=== PATIENT | female | born 1980 | race African-American/Black ===

== ENCOUNTER 2016-06-09 22:58 | Emergency (ER) | payer OTHER ==
[~2016-06-09] VITALS: Ht 165.1 cm; Wt 79.8 kg
[2016-06-09 23:00] VITALS: BP 128/90
[2016-06-09] MEDS ORDERED: CYCL10TA2 PO (23:17)
--- NOTE | 2016-06-09 23:17 | PHYS DOC ---
Past Medical History Past Medical History: No Pertinent History Past Surgical History: Other Additional Past Surgical Histo: SI joint Alcohol Use: None Drug Use: None Adult General Chief Complaint Chief Complaint: Neck Pain HPI HPI 35-year-old female presents with right-sided neck pain. She states she feels like she is pinched a nerve in her neck. It does radiate to her right shoulder. Seems worse in the morning. She is denies any loss of strength to the area. She did take one of her sisters Flexeril which did help.] Review of Systems Review of Systems Constitutional: Denies fever or chills [] Eyes: Denies change in visual acuity, redness, or eye pain [] HENT: Denies nasal congestion or sore throat [] Respiratory: Denies cough or shortness of breath [] Cardiovascular: No additional information not addressed in HPI [] GI: Denies abdominal pain, nausea, vomiting, bloody stools or diarrhea [] : Denies dysuria or hematuria [] Musculoskeletal: Neck pain [] Integument: Denies rash or skin lesions [] Neurologic: Denies headache, focal weakness or sensory changes [] Endocrine: Denies polyuria or polydipsia [] Allergies Allergies Allergies Coded Allergies Type Severity Reaction Last Updated Verified No Known Drug Allergies 06/26/14 No Physical Exam Physical Exam Constitutional: Well developed, well nourished, no acute distress, non-toxic appearance. [] HENT: Normocephalic, atraumatic, bilateral external ears normal, oropharynx moist, no oral exudates, nose normal. [] Eyes: PERRLA, EOMI, conjunctiva normal, no discharge. [] Neck: Normal range of motion, no tenderness, supple, no stridor. [] Cardiovascular:Heart rate regular rhythm, no murmur [] Lungs & Thorax: Bilateral breath sounds clear to auscultation [] Abdomen: Bowel sounds normal, soft, no tenderness, no masses, no pulsatile masses. [] Skin: Warm, dry, no erythema, no rash. [] Back: Muscle spasm right cervical spine. [] Extremities: No tenderness, no cyanosis, no clubbing, ROM intact, no edema. [] Neurologic: Alert and oriented X 3, normal motor function, normal sensory function, no focal deficits noted. [] Psychologic: Affect normal, judgement normal, mood normal. [] EKG EKG [] Radiology/Procedures Radiology/Procedures [] Course & Med Decision Making Course & Med Decision Making Pertinent Labs and Imaging studies reviewed. (See chart for details) [] Dragon Disclaimer Dragon Disclaimer This electronic medical record was generated, in whole or in part, using a voice recognition dictation system. Departure Departure Impression: Primary Impression: Cervical sprain Disposition: HOME, SELF-CARE Condition: STABLE Referrals: NO PCP (PCP) Patient Instructions: Cervical Sprain Additional Instructions: Thank you for allowing us to participate in your care today. Followup with your primary care physician in 3 days if your symptoms do not improve. Return to the emergency department you have any new or concerning findings. This should be evaluated by the primary care physician and any necessary consulting services for continued management within a few days after discharge. Return to emergency room if you have any new or concerning symptoms including but not limited to fever, chills, nausea, vomiting, intractable pain, any new rashes, chest pain, shortness of air, uncontrolled bleeding, difficulty breathing, and/or vision loss. You may have been prescribed medication that can change in your level of thinking and ability to operate machinery. These medications include hydrocodone and Ativan. Also, Benadryl has been known to do this as well. Be sure to check with your pharmacist and ask if the medications you've prescribed can affect your level of consciousness. I recommend not operating heavy machinery or driving while on medication such as these. Scripts Cyclobenzaprine Hcl 10 Mg Tablet1 Tab PO TID PRN MUSCLE PAIN #30 TAB Prov:CHRISTOPHE ANDREWS DO 06/09/16 Problem Qualifiers Primary Impression: Cervical sprain Encounter type: initial encounter Qualified Code: S13.9XXA - Sprain of joints and ligaments of unspecified parts of neck, initial encounter CHRISTOPHE ANDREWS DO Jun 09, 2016 23:17
== END 2016-06-10 00:06 | disposition home or self-care (01) ==
LOC: ER 23:56
DX: S13.9XXA Sprain of joints and ligaments of unspecified parts of neck, initial encounter (principal); X58.XXXA Exposure to other specified factors, initial encounter; Y93.89 Activity, other specified; Y92.89 Other specified places as the place of occurrence of the external cause; Y99.8 Other external cause status
CPT/HCPCS: 99283

== ENCOUNTER 2016-12-20 19:03 | Emergency (ER) | payer OTHER ==
[~2016-12-20] VITALS: Ht 165.1 cm; Wt 79.4 kg
[~2016-12-20 19:03] MED LIST: CYCL10TA2 PO
[2016-12-20 19:31] VITALS: BP 129/78
[2016-12-20] MEDS ORDERED: IV NORMAL SALINE 1000ML BAG 1,000 ML IV ONE (19:45)
[2016-12-20] MEDS ORDERED: diphenhydrAMINE 50 MG/ML VIAL IVP ONE (20:00)
[2016-12-20] MEDS ORDERED: METOCLOPRAMIDE HCL 10 MG/2 ML VIAL. IV ONE (20:00)
[2016-12-20] MEDS ORDERED: IBUP200T77 PO (20:04)
--- NOTE | 2016-12-20 20:05 | PHYS DOC ---
Past Medical History Past Medical History: Migraines Past Surgical History: Other Additional Past Surgical Histo: "si joint " Alcohol Use: None Drug Use: Marijuana Adult General Chief Complaint Chief Complaint: HEADACHE HPI HPI 36-year-old female presenting to the emergency department today with a moderate headache that is similar to previous migraines. It is nonradiating and without associating numbness weakness or tingling. She denies vision changes. She denies any other symptoms. The headache was not sudden in onset. Review of systems is negative for neck stiffness, vision changes, numbness weakness or tingling. All other review of systems is negative unless otherwise noted in history of present illness. ED course: 36-year-old female presenting to the emergency department today with a headache similar to previous migraines. Vital signs unremarkable. Pertinent physical examination shows normal range of motion of the neck. Normal neurologic exam. Patient was offered IV Reglan and Benadryl and fluids however the patient declined IV administration of medications due to fear of IV placement. Patient was then offered ibuprofen and subsequently discharged home to follow up with PCP. The patient was then discharged home in stable condition to follow up with their primary care physician over the next 2-3 days. They were to return if their symptoms worsened or if they were concerned for any reason. [id number] discharge instructions and return precautions were given. Patient's questions were answered to their satisfaction. Patient is comfortable plan. Review of Systems Review of Systems SEE ABOVE. Current Medications Current Medications Current Medications Medications (Trade) Dose Ordered Sig/Halie Start Time Stop Time Status Last Admin Dose Admin Diphenhydramine HCl (Benadryl) 50 mg 1X ONCE 12/20/16 20:00 12/20/16 20:01 Metoclopramide HCl (Reglan) 20 mg 1X ONCE 12/20/16 20:00 12/20/16 20:01 Sodium Chloride 1,000 ml @ 1,000 mls/hr 1X ONCE 12/20/16 19:45 12/20/16 20:44 Allergies Allergies Allergies Coded Allergies Type Severity Reaction Last Updated Verified No Known Drug Allergies 06/26/14 No Physical Exam Physical Exam SEE ABOVE Constitutional: Well developed, well nourished, no acute distress, non-toxic appearance. [] HENT: Normocephalic, atraumatic, bilateral external ears normal, oropharynx moist, no oral exudates, nose normal. Eyes: PERRLA, EOMI, conjunctiva normal, no discharge. Neck: Normal range of motion, no tenderness, supple, no stridor. [] Cardiovascular:Heart rate regular rhythm, no murmur Lungs & Thorax: Bilateral breath sounds clear to auscultation [] Abdomen: Bowel sounds normal, soft, no tenderness, no masses, no pulsatile masses. Skin: Warm, dry, no erythema, no rash. [] Back: No tenderness, no CVA tenderness. [] Extremities: No tenderness, no cyanosis, no clubbing, ROM intact, no edema. Neurologic: Mental status: Awake oriented and alert x3 Cranial nerves: Extraocular movements intact, eyebrows brigitte bilaterally smile symmetric, uvula elevation, shoulder shrug intact, tongue protrusion normal DTRs: 2+ Sensation: equal and normal in all extremities Strength: 5/5 in upper and lower extremities bilaterally Psychologic: Affect normal, judgement normal, mood normal. Current Patient Data Vital Signs Vital Signs Date Time Temp Pulse Resp B/P (MAP) Pulse Ox O2 Delivery O2 Flow Rate FiO2 12/20/16 19:31 98.6 75 16 129/78 (95) 100 Room Air 98.6 Lab Values Laboratory Tests Test 12/20/16 18:36 POC Urine HCG, Qualitative Hcg negative (Negative) EKG EKG [] Radiology/Procedures Radiology/Procedures [] Course & Med Decision Making Course & Med Decision Making Pertinent Labs and Imaging studies reviewed. (See chart for details) [] Dragon Disclaimer Dragon Disclaimer This electronic medical record was generated, in whole or in part, using a voice recognition dictation system. Departure Departure Impression: Primary Impression: Headache Disposition: HOME, SELF-CARE Condition: STABLE Referrals: NO PCP (PCP) Patient Instructions: General Headache Without Cause Additional Instructions: Thank you for allowing us to participate in your care today. Followup with your primary care physician in 3 days if your symptoms do not improve. Call your Primary Doctor tomorrow and inform them of your visit today. If you do not have a primary care provider you can ask for a list of our primary care providers. Return to the emergency department you have any new or concerning findings. This should be evaluated by the primary care physician and any necessary consulting services for continued management within a few days after discharge. Return to emergency room if you have any new or concerning symptoms including but not limited to fever, chills, nausea, vomiting, intractable pain, any new rashes, chest pain, shortness of air, uncontrolled bleeding, difficulty breathing, and/or vision loss. Scripts Ibuprofen (IBUPROFEN) 200 Mg Tablet 200 MG PO PRN Q6HRS Y for INFLAMMATION, #30 TAB Prov: JASVIR WOLFF MD 12/20/16 JASVIR WOLFF MD Dec 20, 2016 20:05
[2016-12-20] MEDS ORDERED: IBUPROFEN 400 MG TABLET. PO ONE (20:30)
== END 2016-12-20 20:10 | disposition home or self-care (01) ==
LOC: ER 19:03
DX: R51 Headache (principal); G43.909 Migraine, unspecified, not intractable, without status migrainosus; F12.10 Cannabis abuse, uncomplicated
CPT/HCPCS: 81025; 99282

== ENCOUNTER 2019-07-12 11:16 | Emergency (ER) | payer BC, OTHER ==
[~2019-07-12] VITALS: Ht 165.1 cm; Wt 79.0 kg
[~2019-07-12 11:16] MED LIST changes: +AMOX500C PO; +DICL50TA4 PO; +IBUP200T77 PO
[2019-07-12 12:50] VITALS: BP 129/92
--- NOTE | 2019-07-12 13:24 | RAD ---
Three-view right foot study Clinical indications: Bump on the first metatarsal phalangeal joint with sharp pain. FINDINGS: No acute fracture or dislocation or lytic process is evident. No periosteal reaction is seen. There is a small bunion with overlying medial soft tissue swelling. No plantar spur of the calcaneus is evident. IMPRESSION: No acute fracture. Bunion. Electronically signed by: Osmani Pierson MD (07/12/2019 1:21 PM) [facility]
[2019-07-12] MEDS ORDERED: DICL100G18 TP (13:43)
--- NOTE | 2019-07-12 13:43 | PHYS DOC ---
Past Medical History Past Medical History: Migraines Past Surgical History: Other Additional Past Surgical Histo: "si joint " Smoking Status: Never Smoker Alcohol Use: None Drug Use: Marijuana Adult General Chief Complaint Chief Complaint: OTHER COMPLAINTS HPI HPI Patient is a 38 year old female patient presenting to the ED today complaining of a bump on the side of the right foot for years. Patient is requesting x-rays. Patient denies any injuries. Review of Systems Review of Systems Constitutional: Denies fever or chills [] Musculoskeletal: Reports bump on the side of the right foot Integument: Denies rash or skin lesions [] Neurologic: Denies headache, focal weakness or sensory changes [] All other systems were reviewed and found to be within normal limits, except as documented in this note. Allergies Allergies Allergies Coded Allergies Type Severity Reaction Last Updated Verified No Known Drug Allergies 06/26/14 No Physical Exam Physical Exam Constitutional: Well developed, well nourished, no acute distress, non-toxic appearance. [] Skin: Warm, dry, no erythema, no rash. [] Back: No tenderness, no CVA tenderness. [] Extremities: Right great toe MTP joint with an area of swelling consistent with a bunion. There is no erythema, slight tenderness to the region. Full ROM to the right toes. +2 right pedal pulse. Cap refill less than 2 seconds the right toes. Neurologic: Alert and oriented X 3, normal motor function, normal sensory function, no focal deficits noted. [] Psychologic: Affect normal, judgement normal, mood normal. [] Current Patient Data Vital Signs Vital Signs Date Time Temp Pulse Resp B/P (MAP) Pulse Ox O2 Delivery O2 Flow Rate FiO2 07/12/19 12:50 98.1 65 18 129/92 (104) 95 Room Air 98.1 EKG EKG [] Radiology/Procedures Radiology/Procedures []PROCEDURE: FOOT RIGHT 3V Three-view right foot study Clinical indications: Bump on the first metatarsal phalangeal joint with sharp pain. FINDINGS: No acute fracture or dislocation or lytic process is evident. No periosteal reaction is seen. There is a small bunion with overlying medial soft tissue swelling. No plantar spur of the calcaneus is evident. IMPRESSION: No acute fracture. Bunion. Electronically signed by: Joyce Pierson MD (07/12/2019 1:21 PM) [facility] DICTATED and SIGNED BY: JOYCE PIERSON MD DATE: 07/12/19 1321 Course & Med Decision Making Course & Med Decision Making Pertinent Labs and Imaging studies reviewed. (See chart for details) This is a 38-year-old male patient presented to the ED today with a bump on the side of the right foot suspicious of a bunion. Has been there for years. Patient requesting x-rays of the right foot. Right foot x-rays interpreted by radiologist were noted for a bunion otherwise no acute findings. 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 Dragon Disclaimer Dragon Disclaimer This electronic medical record was generated, in whole or in part, using a voice recognition dictation system. Departure Departure Impression: Primary Impression: Bunion of great toe of right foot Disposition: HOME, SELF-CARE Condition: STABLE Referrals: NO PCP (PCP) TIFFANIE HOPSON DPM Patient Instructions: Bunion (Hallux Valgus)-[employer] Additional Instructions: You have a bunion on the right foot. Please follow-up with the provided orthopedic doctor in 1-2 weeks. Scripts Diclofenac Sodium (VOLTAREN) 100 Gm Gel..gram. 1 GM TP QID for pain for 30 Days, #100 GM 0 Refills apply to affected area(s) Prov: TAMRA GARVIN APRN 07/12/19 TAMRA GARVIN APRN Jul 12, 2019 13:43
== END 2019-07-12 14:08 | disposition home or self-care (01) ==
LOC: ER 11:16
DX: M21.611 Bunion of right foot (principal); R22.41 Localized swelling, mass and lump, right lower limb; G43.909 Migraine, unspecified, not intractable, without status migrainosus; F12.90 Cannabis use, unspecified, uncomplicated; Z98.890 Other specified postprocedural states
CPT/HCPCS: 73630; 99283